=== PATIENT | female | born 1955 | race Caucasian/White ===

== ENCOUNTER 2018-10-30 14:18 | Emergency (ER) | payer OTHER, BC ==
[~2018-10-30] VITALS: Ht 180.3 cm; Wt 124.7 kg
[2018-10-30] MEDS ORDERED: SYNTHROID200 MCG PO (15:23)
[2018-10-30] MEDS ORDERED: TAMOXIFEN CITRA10 MG PO (15:24)
== END 2018-10-30 17:20 | disposition home or self-care (01) ==
LOC: ED 14:18
DX: S80.02XA Contusion of left knee, initial encounter (principal); S70.02XA Contusion of left hip, initial encounter; S20.212A Contusion of left front wall of thorax, initial encounter; E03.9 Hypothyroidism, unspecified; Z85.3 Personal history of malignant neoplasm of breast; Z90.710 Acquired absence of both cervix and uterus; Z88.5 Allergy status to narcotic agent; Z79.899 Other long term (current) drug therapy; V49.50XA Passenger injured in collision with unspecified motor vehicles in traffic accident, initial encounter; Y92.411 Interstate highway as the place of occurrence of the external cause
CPT/HCPCS: 71101; 73502; 73560; 99283-25